=== PATIENT | male | born 1955 | race Caucasian/White ===

== ENCOUNTER → 2018-07-18 | Outpatient (CLI) | payer MEDICARE, BC ==
--- NOTE | 2018-07-18 21:01 | CONS ---
CONSULTATION DATE OF SERVICE: 07/18/2018 This patient is a 63-year-old gentleman who has been re-evaluated in Sleep Center for obstructive sleep apnea-hypopnea syndrome. Last time I saw this patient was in 2008. At that time he was diagnosed with sleep apnea and he received CPAP equipment. He used CPAP equipment successfully for many years, but about a year ago his CPAP unit was broken. At present the patient's sleep schedule is from 10 p.m. to 6 a.m. He continues to snore and has episodes of stopped breathing during sleep. He usually does have a problem with falling asleep, although he has a TV set in the bedroom. During the day he takes about 2 cups of coffee. [place] Sleepiness Scale is significantly increased at 19. PAST MEDICAL HISTORY: 1. Hypertension. 2. Diabetes mellitus. 3. BPH. 4. Polyarthritis. 5. Foot problems. PAST SURGICAL HISTORY: 1. Appendectomy. 2. Bilateral surgery for carpal tunnel syndrome. 3. Bilateral surgery for tarsal tunnel syndrome. 4. Right ankle surgery. 5. Back surgery. MEDICATIONS: 1. . 2. Glyburide. 3. Lisinopril. 4. Tamsulosin. 5. Gabapentin. 6. acid. SOCIAL HISTORY: Positive for smoking for about 46 years, now decreased down to 5 or 6 cigarettes a day. Alcohol consumption none at present. FAMILY HISTORY: Hypertension, heart problems, hypercholesterolemia, stroke, arthritis, sleep apnea, snoring, diabetes. PHYSICAL EXAMINATION: GENERAL: A pleasant gentleman without distress. VITAL SIGNS: BP 130/76, HR 76, RR 16, height 5 feet 8-1/2 inches, weight 228 pounds, body mass index 34.1, temperature 97.6, oxygen saturation at room air 95%. HEENT: PERRLA, EOMI. Evaluation of oropharynx showed tongue protrudes midline. Extremely low position of soft palate. Mallampati IV. Some restriction of nasal breathing. NECK: Supple. No JVD. Thyroid is not palpable. Wide neck; 17-1/2 inches in circumference. LUNGS: Clear to percussion and to auscultation. Good air exchange. No wheezing or rhonchi. HEART: S1, S2 regular. No murmurs, gallops or rubs. ABDOMEN: Obese. EXTREMITIES: No clubbing or cyanosis. FIBERGLASS INSULATION INSTALLER: Awake, alert, and oriented X3. Cranial nerves 2 to 7 intact. There is no fasciculation or atrophy. noted. No focal deficits observed. IMPRESSION: 1. Snoring, awakenings from sleep, extremely low position of soft palate, Mallampati IV, wide neck, significant excessive daytime sleepiness, history of obstructive sleep apnea in the past; obstructive sleep apnea-hypopnea syndrome. 2. Obesity with body mass index of 34.1. 3. Hypertension. 4. Diabetes mellitus. 5. History of benign prostatic hypertrophy. 6. History of polyarthritis. 7. History of foot problems bilaterally, status post right ankle surgery. 8. Status post appendectomy. 9. Status post carpal tunnel syndrome surgery bilaterally. 10.Status post surgery for tarsal tunnel syndrome bilaterally. 11.Status post back surgery. PLAN: 1. Polysomnography for evaluation of patient's breathing during sleep. 2. CPAP/BiPAP titration if sleep study confirms obstructive sleep apnea-hypopnea syndrome. 3. Preferable position during sleep on the side. 4. No driving if patient feels any sleepiness. 5. I will see patient for follow up visit to explain results of testing and following plan. Thank you very much for referring this patient for reevaluation. Sincerely, Pito Hall MD, PhD, FAASM Diplomat of [employer] Microbiology Teacher of [facility] [place] NICOL / ESPERANZA: [phone] /
== END ==
LOC: SLEEP 14:17
PROVIDERS: ATTEND Internal Medicine
DX: G47.33 Obstructive sleep apnea (adult) (pediatric) (principal); E66.9 Obesity, unspecified; I10 Essential (primary) hypertension; E11.9 Type 2 diabetes mellitus without complications; N40.0 Benign prostatic hyperplasia without lower urinary tract symptoms; M13.0 Polyarthritis, unspecified; F17.200 Nicotine dependence, unspecified, uncomplicated; Z98.890 Other specified postprocedural states; Z90.89 Acquired absence of other organs; Z68.34 Body mass index [BMI] 34.0-34.9, adult; Z79.899 Other long term (current) drug therapy
CPT/HCPCS: 99211

== ENCOUNTER → 2018-10-24 | Outpatient (CLI) | payer MEDICARE, BC ==
--- NOTE | 2018-10-24 12:40 | SFUN ---
SLEEP CENTER FOLLOW UP NOTE DATE OF SERVICE: 10/24/2018 This is a 63-year-old gentleman who had been followed in the sleep center for treatment of obstructive sleep apnea-hypopnea syndrome. Recently patient had polysomnogram and CPAP titration which showed the patient has severe sleep apnea. Subsequently after that, the patient was started on treatment with BiPAP and this is his first visit after he received his BiPAP unit. The patient was able to use BiPAP equipment every night without significant problems related to mask fitting, pressure or humidification. I checked his BiPAP unit. BiPAP pressure is 12/8 cm of water. Usage is every night for more than 4 hours with average usage 10 hours per night. Leak is L/minute, which is borderline. Total apnea-hypopnea index is 3.4, which is normal. [place] Sleepiness Scale today is 3, which is normal. MEDICATIONS: , , lisinopril, tamsulosin, gabapentin, acid. PHYSICAL EXAMINATION: During physical exam, patient in no distress. VITAL SIGNS: BP 116/70, HR 75, RR 16, weight 231.2, temperature 97.2, oxygen saturation at room air 95%. HEENT: PERRLA, EOMI. Oropharynx extremely low position of soft palate. Mallampati 4. NECK: Supple, no JVD. Thyroid is not palpable. LUNGS: Clear to percussion and to auscultation. Good air exchange. No wheezing or rhonchi. HEART: S1, S2 regular. No murmurs, gallops, or rubs. ABDOMEN: Obese. EXTREMITIES: No clubbing or cyanosis. REPAIR TECH: Awake, alert, and oriented X3. Cranial nerves 2 to 7 intact. There is no fasciculation or atrophy. noted. No focal deficits observed. IMPRESSION: 1. Severe obstructive sleep apnea-hypopnea syndrome. Apnea-hypopnea index 65.2 with oxygen desaturation to 82.7%, on full control with BiPAP at the pressure of 12/8 cm of water. Patient demonstrated 100% compliance with treatment benefitting from treatment. 2. Obesity. 3. Mild periodic limb movements during diagnostic night and moderate during titration. Clinically no significant presentation at the present time. 4. Hypertension. 5. Diabetes mellitus. 6. History of benign prostatic hypertrophy. 7. History of polyarthritis. 8. Status post right ankle surgery. 9. Status post appendectomy. 10.History of foot problems bilaterally. 11.Status post carpal tunnel syndrome treated surgically bilaterally. 12.Status post tarsal tunnel syndrome treated surgically bilaterally. 13.Status post back surgery. PLAN: 1. Patient will continue to use BiPAP equipment every night for the whole night. 2. Losing weight. 3. Sleep hygiene with regular time in bed for at least 8 hours. 4. No driving if feeling sleepiness. 5. Will maintain all necessary BiPAP prescription including mask, tube, filters. Thank you very much for allowing me to participate in management of your patient. Sincerely, Pito Hall MD, PhD, FAASM Diplomat of [employer] Truck Safety Inspector of [facility] [place] MMODL / MELISAN: [id number] /
== END | disposition home or self-care (01) ==
LOC: SLEEP 10:57
PROVIDERS: ATTEND Internal Medicine
DX: G47.33 Obstructive sleep apnea (adult) (pediatric) (principal); G47.61 Periodic limb movement disorder; I10 Essential (primary) hypertension; E11.9 Type 2 diabetes mellitus without complications; E66.9 Obesity, unspecified; Z87.39 Personal history of other diseases of the musculoskeletal system and connective tissue; Z87.438 Personal history of other diseases of male genital organs; Z90.89 Acquired absence of other organs; Z99.89 Dependence on other enabling machines and devices; Z98.890 Other specified postprocedural states; Z79.899 Other long term (current) drug therapy

== ENCOUNTER → 2019-10-23 | Outpatient (CLI) | payer MEDICARE, BC ==
--- NOTE | 2019-10-24 04:45 | SFUN ---
SLEEP CENTER FOLLOW UP NOTE DATE OF SERVICE: 10/23/2019 This 64-year-old gentleman has been followed in Sleep Center for treatment of obstructive sleep apnea-hypopnea syndrome. The patient successfully continuing to use his CPAP equipment every night. [place] Sleepiness Scale today is 9, which is acceptable. He is a receiving all his supplies for machine in time. I checked his CPAP unit. It is set at automatic regimen with pressure 8-12 cm of water. Average pressure 11.7 cm of water. Usage is 30 out of 30 nights for more than 4 hours with average usage 9.6 hours per night. Leak is 17 L/minute which is borderline. Apnea-hypopnea index is 1.7, which is normal. MEDICATIONS: Glyburide, lisinopril, , tamsulosin, gabapentin. PHYSICAL EXAMINATION: GENERAL: Patient in no distress. VITAL SIGNS: BP 127/71, HR 78, RR 16, height 5 feet 8 inches and 3/4, weight 235.2, temperature 97.7l oxygen saturation at room air 98%. HEENT: PERRLA, EOMI. Oropharynx in the low position of soft palate, Mallampati 4. NECK: Supple, no JVD. Thyroid is not palpable. LUNGS: Clear to percussion and to auscultation. Good air exchange. No wheezing or rhonchi. HEART: S1, S2 regular. No murmurs, gallops, or rubs. ABDOMEN: Obese. EXTREMITIES: No clubbing or cyanosis. CLINICAL PSYCHOLOGIST PRIVATE PRACTICE: Awake, alert, and oriented X3. Cranial nerves 2 to 7 intact. There is no fasciculation or atrophy. noted. No focal deficits observed. IMPRESSION: 1. Obstructive sleep apnea-hypopnea syndrome. Patient demonstrated 100% compliance with treatment benefitting from treatment. 2. Obesity. 3. Mild periodic limb movements. 4. Hypertension. 5. Diabetes mellitus. 6. History of polyarthritis. 7. History of benign prostatic hypertrophy. 8. Status post appendectomy. 9. Status post right ankle surgery. 10.History of foot problems bilaterally. 11.Status post surgical treatment for carpal tunnel syndrome bilaterally. 12.Status post surgical treatment for tarsal tunnel syndrome bilaterally. 13.Status post back surgery. PLAN: 1. Patient will continue to use PAP equipment every night for the whole night. 2. Sleep hygiene with regular time in bed for at least 7-1/2 to 8 hours. 3. Precautions related to driving. No driving if feeling sleepiness. 4. I will maintain all necessary prescription for PAP supplies including mask, tube, filters. 5. Watching weight. 6. No driving if feeling sleepiness. 7. Follow-up visit in one year or earlier if patient has any problems. Thank you very much for allowing me to participate in management of your patient. Sincerely, Pito Hall MD, PhD, FAASM Diplomat of [employer] Specialties [employer] Board of Internal Medicine Fiction Writer of [facility] [place] MMODL / IJN: [id number] /
== END | disposition home or self-care (01) ==
LOC: SLEEP 13:11
PROVIDERS: ATTEND Internal Medicine
DX: G47.33 Obstructive sleep apnea (adult) (pediatric) (principal); E66.9 Obesity, unspecified; I10 Essential (primary) hypertension; E11.9 Type 2 diabetes mellitus without complications; Z90.49 Acquired absence of other specified parts of digestive tract; Z87.39 Personal history of other diseases of the musculoskeletal system and connective tissue; Z87.448 Personal history of other diseases of urinary system; Z98.890 Other specified postprocedural states; Z99.89 Dependence on other enabling machines and devices

== ENCOUNTER → 2020-10-21 | Outpatient (CLI) | payer MEDICARE, BC ==
--- NOTE | 2020-10-21 11:53 | SFUN ---
SLEEP CENTER FOLLOW UP NOTE DATE OF SERVICE: 10/21/2020 This 65-year-old gentleman has been followed in Sleep Center for treatment of obstructive sleep apnea-hypopnea syndrome. The patient is continuing to use CPAP equipment every night for the whole night, but feels sleepy during the day. [place] Sleepiness Scale today is in very high range at 24. During his previous visit it was 9. I checked his CPAP unit. Range of the pressure is 8-12, average pressure 11.4. Usage is 30/30 nights for more than 4 hours with average usage 9.8 hours per night. Leak is borderline at 22 L/minute. Apnea-hypopnea index is only 1.8, which is totally normal. Air filter is in bad condition. Cover for the air filter is broken and needs to be replaced. MEDICATIONS: 1. Pioglitazone 30 mg once a day. 2. Glyburide 3 mg twice a day. 3. Lisinopril 20 mg twice a day. 4. Duloxetine 60 mg twice a day. 5. Tamsulosin 0.04 mg twice a day. PHYSICAL EXAMINATION: GENERAL: A pleasant patient without any distress. VITAL SIGNS: Blood pressure 108/69, heart rate 74, RR 15, height 5 feet 8-1/2 inches, weight 230 pounds, body mass index 34.4, temperature 98.5, oxygen saturation at room air 96%. HEENT: PERRLA, EOMI, evaluation of oropharynx showed tongue protrudes midline. Extremely low position of soft palate. Mallampati IV. NECK: Supple, no JVD. Thyroid is not palpable. LUNGS: Clear to percussion and to auscultation. Good air exchange. No wheezing or rhonchi. HEART: S1, S2 regular. No murmurs, gallops, or rubs. ABDOMEN: Obese. EXTREMITIES: No clubbing or cyanosis. MARKETING OPERATIONS ANALYST: Awake, alert, and oriented X3. Cranial nerves 2 to 7 intact. There is no fasciculation or atrophy. noted. No focal deficits observed. IMPRESSION: 1. Obstructive sleep apnea-hypopnea syndrome. Patient demonstrated great compliance with treatment, benefitting from treatment. 2. Sleepiness during the day; high range of [place] Sleepiness Scale. 3. Obesity. 4. History of mild periodic limb movements. 5. Hypertension. 6. Diabetes mellitus. 7. History of polyarthritis. 8. History of benign prostatic hypertrophy. 9. Status post appendectomy. 10.Status post right ankle surgery. 11.History of foot problems bilaterally. 12.Status post surgical treatment for carpal tunnel syndrome bilaterally. 13.Status post surgical treatment for tarsal tunnel syndrome bilaterally. 14.Status post back surgery. PLAN: 1. Immediately to replace air filter. Condition of air filter is bad. Cover for air filter is broken and also needs to be replaced. 2. I discussed with the patient a multiple sleep latency test for objective evaluation of symptoms of his sleepiness and, if necessary, pharmacotherapy. The patient did not want to proceed at the present time. 3. Patient will continue to use PAP equipment every night for the whole night. 4. Sleep hygiene with regular time in bed for at least 7-1/2 to 8 hours. 5. Precautions related to driving. No driving if feeling sleepiness. 6. I will maintain all necessary prescription for PAP supplies including mask, tube, filters. 7. Watching weight. 8. Follow-up visit in 6 months or earlier if patient has any problems. Thank you very much for allowing me to participate in the management of your patient. Sincerely, Pito Hall MD, PhD, FAASM Diplomat of [place] [employer] Special[employer] Sleep Medicine Board of [place] [employer] of Internal Medicine Stock[employer] Box Shop Supervisor of [facility] [place] MMODL / MELISAN: [phone] /
== END | disposition home or self-care (01) ==
LOC: SLEEP 09:52
PROVIDERS: ATTEND Internal Medicine
DX: G47.33 Obstructive sleep apnea (adult) (pediatric) (principal); E66.9 Obesity, unspecified; I10 Essential (primary) hypertension; E11.9 Type 2 diabetes mellitus without complications; M13.0 Polyarthritis, unspecified; N40.1 Benign prostatic hyperplasia with lower urinary tract symptoms; Z90.89 Acquired absence of other organs; Z98.1 Arthrodesis status

== ENCOUNTER → 2021-10-19 | Outpatient (CLI) | payer MEDICARE, BC ==
--- NOTE | 2021-10-19 11:03 | P.PN ---
Subjective DATE: 10/19/2021 FOLLOW UP VISIT. Patient with obstructive sleep apnea hypopnea syndrome return to sleep center for follow-up visit. Information from previous visit have been reviewed. Patient is using PAP equipment every night for the whole night, getting PAP supplies in time. The patient feels that humidity is too high in his CPAP unit, he does not know how to change level of humidity. Patient continued to have significant excessive daytime sleepiness. [place] sleepiness scale is an maximal level of 24. I checked information from PAP unit. PAP unit pressure 8-12, average 11.7 cm H2O. Usage is 100 % for more then 4 hours, average 9.6 hours per night. Leak is 13 l/m, which is in acceptable range. Apnea Hypopnea Index is 2, which is normal. MEDICATIONS:1. Lisinopril 20 mg twice a day 2. , Gliburide 3 mg twice a day 3. Tamsulosin 0.04 mg twice a day 4. Gabapentin 300 mg twice a day 5. Pioglitazone 30 mg once a day 6. Foltanx twice a day During physical exam: GENERAL: A pleasant patient without any distress. VITAL SIGNS: BP 108/67, HR 64, RR 18 , weight 244.4, temperature 97, oxygen saturation at room air 96 % . HEENT: PERRLA, EOMI.low position of soft palate, Mallapati 4 . NECK: Supple. No JVD. LUNGS: Clear to percussion and to auscultation. Good air exchange. No wheezing or rhonchi. HEART: S1, S2 regular. ABDOMEN: Soft and nontender. Obese EXTREMITIES: No clubbing or cyanosis. YARD COORDINATOR: Awake, alert, and oriented x3. No focal deficit. Impressions: 1. Obstructive sleep apnea-hypopnea syndrome. Patient demonstrated great compliance with treatment, benefiting from treatment. Normal respiration on CPAP. 2. Patient continued to complain on symptoms of excessive daytime sleepiness. [place] Sleepiness Scale at maximal level of 24. Patient is able to fall asleep in waiting area while waiting for appointment. Differential diagnosis would include additional diagnosis of hypersomnia. 3. Hypertension. 4. Diabetes mellitus. 5. History of polyarteritis. 6. History of benign prostatic hypertrophy. 7. Status post appendectomy. 8. Status post right ankle surgery. 9. History of 4 problems, waiting for food surgery. Plan: 1. Continue using PAP equipment every night for the whole night. I teach patient how to adjust humidifier. Level of humidity was adjusted lower to the level of 2. 2. Multiple sleep latency test for objective for evaluation patient's symptoms of excessive daytime sleepiness. Tests will be done after the night on CPAP. 3. PAP unit should stay lower then position of the head. 4. Advised patient to remove all remaining water from humidifier canister daily and make it dry after each usage. Refill canister with fresh distilled water before each usage. 5. Sleep hygiene with regular time in bed for at least 8 hours. 6. Precautions related to driving. No driving if feel any sleepiness. 7. I will maintain prescription for PAP supplies including mask, tube, filters. 8. Follow up visit after M SLT test to discuss results and following plan. 9. Watching and losing weight. Thank you very much for allowing me to participate in the management of your patient. Pito Hall MD, PhD, FAASM. Diplomat of [place] Board [employer] Sleep Medicine, Sleep Medicine Board by [place] Board of Internal Medicine Manager Package of [facility] [place]
== END | disposition home or self-care (01) ==
LOC: SLEEP 09:53
PROVIDERS: ATTEND Internal Medicine
DX: G47.33 Obstructive sleep apnea (adult) (pediatric) (principal); I10 Essential (primary) hypertension; E11.9 Type 2 diabetes mellitus without complications; N40.0 Benign prostatic hyperplasia without lower urinary tract symptoms
CPT/HCPCS: 99212

== ENCOUNTER 2021-12-27 06:42 | Day surgery (SDC) | payer MEDICARE, BC ==
[~2021-12-27 06:42] MED LIST: LACTATED RINGERS 1,000 ML IV SCH; LIDOCAINE 1% (10MG/ML) FOR IV START INTRADERMA PRN
[2021-12-27 07:27] LABS: Glucose,Whole Blood 108 mg/dL (70-110)
[2021-12-27] MEDS ORDERED: PROPOFOL 10 MG/ML 20 ML VIAL IV ONE (07:56)
[2021-12-27] MEDS ORDERED: LIDOCAINE 2% INJ 20 MG/ML (2 ML VIAL) ONE (07:56)
--- NOTE | 2021-12-27 08:29 | P.PCN ---
Date of Procedure: 12/27/21 Procedure(s) Performed: BRIEF HISTORY: Patient is a 66-year-old, pleasant, white male scheduled for an upper endoscopy as a part of evaluation of progressive dysphagia to solids for the last several months duration.. He has these episodes almost to 3 times a day. Has occasional dysphagia to liquids. No recent weight loss. He scheduled for an upper endoscopy with possible dilation PROCEDURE PERFORMED: Esophagogastroduodenoscopy with biopsy. PREOPERATIVE DIAGNOSIS: Progressive dysphagia to solids of several months duration. IV sedation per anesthesia. PROCEDURE: After informed consent was obtained, the patient was brought into the endoscopy unit. IV sedation was administered by Anesthesia under continuous monitoring. Initially the Olympus GIF-140 video endoscope was inserted into the mouth. Esophagus intubated without any difficulty. It was gradually advanced into the stomach and duodenum and carefully examined. The bulb and the second part of the duodenum appeared normal. The scope at this time was withdrawn to the stomach, adequately insufflated with air, and upon careful examination, mucosa of the antrum, gastritis and biopsies were done from this area. The body, cardia and the fundus appeared normal. The scope was then withdrawn into the esophagus. The GE junction was located at 43 cm from the incisors. The GE junction appeared somewhat tight but there was no obvious esophageal stricture identified. The mucosa of the esophagus appeared normal. However there was evidence of esophageal dysmotility involving the entire esophagus. Biopsies were done from the mid and distal esophagus and the patient tolerated the procedure well. IMPRESSION: 1. Evidence of esophageal dysmotility and tight lower esophageal sphincter suspicious for esophageal achalasia. 2. No evidence of esophageal stricture 3. Mild antral gastritis. RECOMMENDATIONS: The findings of this examination were discussed with the patient as well as his family. He was advised to follow with the biopsy results. He will be scheduled for esophageal manometry and he'll be seen in office in 2-3 weeks.
[2021-12-27 08:49] VITALS: BP 137/73; PULSE 69; RESP 18
== END 2021-12-27 09:25 | disposition home or self-care (01) ==
LOC: ORWHC2ENDO 06:42
PROVIDERS: ATTEND Internal Medicine Gastroenterology
DX: K29.50 Unspecified chronic gastritis without bleeding (principal); K20.90 Esophagitis, unspecified without bleeding; I10 Essential (primary) hypertension; G47.33 Obstructive sleep apnea (adult) (pediatric); E11.40 Type 2 diabetes mellitus with diabetic neuropathy, unspecified; F17.200 Nicotine dependence, unspecified, uncomplicated; Z79.84 Long term (current) use of oral hypoglycemic drugs; Z79.899 Other long term (current) drug therapy; Z99.89 Dependence on other enabling machines and devices
CPT/HCPCS: 88305; 43239; J2704; J2001

== ENCOUNTER → 2022-01-04 | Outpatient (CLI) | payer MEDICARE, BC ==
--- NOTE | 2022-01-04 11:18 | P.PN ---
Subjective DATE: 01/04/2022 FOLLOW UP VISIT. Patient with obstructive sleep apnea hypopnea syndrome return to sleep center for follow-up visit. Information from previous visit have been reviewed. I recently patient had the multiple sleep latency test and I discussed results of sleep study with patient in details. Mean sleep latency during the multiple sleep latency test was 7.8 minutes. Total sleep onset REM periods, which following standard criteria's may indicate possibility of narcolepsy. At the same time extremely severe periodic limb movements during M SLT and polysomnogram which also could be the reason for sleepiness. Patient is using PAP equipment every night for the whole night, getting PAP supplies in time. The patient does not have significant problems with the mask, PAP unit and humidification. [place] sleepiness scale is in extremely high range of 24. I checked information from PAP unit. PAP unit pressure 8-12, average 11.8 cm H2O. Usage is 97 % for more then 4 hours, average 8.8 hours per night. Leak is 20.6 l/m, which is in acceptable range. Apnea Hypopnea Index is 1.1, which is normal. MEDICATIONS:1. Lisinopril 20 mg twice a day 2. Tumsulosin 3. Gabapentin 300 mg 3 times a day 4. Gliburide 3 mg twice a day 5. Pioglitazone 30 mg once a day During physical exam: GENERAL: A pleasant patient without any distress. VITAL SIGNS: BP 150/79, HR 77, RR 13, weight 239.6, temperature 97.6, oxygen saturation at room air 19 2 % . HEENT: PERRLA, EOMI.low position of soft palate, Mallapati 4 . NECK: Supple. No JVD. LUNGS: Clear to percussion and to auscultation. Good air exchange. No wheezing or rhonchi. HEART: S1, S2 regular. ABDOMEN: Soft and nontender. Obese EXTREMITIES: No clubbing or cyanosis. WELDER REPAIR: Awake, alert, and oriented x3. No focal deficit. Impressions: 1. Obstructive sleep apnea-hypopnea syndrome. Patient demonstrated great compliance with treatment, benefiting from treatment. 2. Multiple sleep latency test showed mean sleep latency 7.8 minutes with total sleep onset REM periods which indicate possible narcolepsy. 3. Patient has pain in the right ankle, preparing for right ankle surgery. 4. Extremely severe periodic limb movements during polysomnogram 80.9 times per hour, but only was 0.3 micro-arousals per hour. Leg movements also could be the reason for significant excessive daytime sleepiness. Possibly leg movements related to the pain in the ankles.. 5. Obesity. 6. Hypertension. 7. Diabetes mellitus. 8. History of BPH. 9. Status post appendectomy. 10. Status post right ankle surgery. Plan: 1. Continue using PAP equipment every night for the whole night. 2. I discussed with patient possibility to start him on treatment with the medications preventing daytime sleepiness, but patient prefers not to do it at the present time. 3. I discussed with patient possibility to start him off on medications for periodic limb movements, but she also doesn't want to do it at the present time, prefers to wait after surgery will be done on his left ankle. My consideration is dopaminergic agonists, because patient is already on treatment with gabapentin. 4. Iron profile including ferritin level should be checked, because low level of iron may increase risk for periodic limb movements. 5. Sleep hygiene with regular time in bed for at least 8 hours. 6. Precautions related to driving. No driving if feel any sleepiness. 7. I will maintain prescription for PAP supplies including mask, tube, filters. 8. Follow up visit in 6 months or earlier if patient has any problems. 9. Watching and losing weight. Thank you very much for allowing me to participate in the management of your patient. Pito Hall MD, PhD, FAASM. Diplomat of [place] [employer] of Sleep Medicine, Sleep Medicine Board by [place] [employer] of [employer] Medicine Cupola Man of [facility] [place]
== END ==
LOC: SLEEP 10:30
PROVIDERS: ATTEND Internal Medicine
DX: G47.33 Obstructive sleep apnea (adult) (pediatric) (principal); E66.9 Obesity, unspecified; I10 Essential (primary) hypertension; E11.9 Type 2 diabetes mellitus without complications; M25.571 Pain in right ankle and joints of right foot; Z48.815 Encounter for surgical aftercare following surgery on the digestive system; Z96.661 Presence of right artificial ankle joint; N40.0 Benign prostatic hyperplasia without lower urinary tract symptoms; G47.61 Periodic limb movement disorder; Z99.89 Dependence on other enabling machines and devices
CPT/HCPCS: 99212

== ENCOUNTER → 2022-08-21 | Day surgery (SDC) | payer MEDICARE, BC ==
[2022-08-17 17:26] VITALS: BMI 36.9
[2022-08-21 09:34] VITALS: BP 125/67; PULSE 63; RESP 16; TEMP 97.9
== END ==
LOC: ORWHC2ENDO 09:15
PROVIDERS: ATTEND Internal Medicine Gastroenterology
DX: R13.19 Other dysphagia (principal)
CPT/HCPCS: 91010

== ENCOUNTER → 2022-10-11 | Outpatient (CLI) | payer MEDICARE, BC ==
--- NOTE | 2022-10-11 11:31 | P.PN ---
Subjective DATE: 10/10/2022 FOLLOW UP VISIT. Patient with obstructive sleep apnea hypopnea syndrome return to sleep center for follow-up visit. Information from previous visit have been reviewed. Patient is using PAP equipment every night for the whole night, getting PAP supplies in time. Patient feels more comfortable with the mask, but the still may have some discomfort and difficulties to breathe through the nose in the morning. In the morning patient may experience headache.[place] sleepiness scale is 8, which is normal. I checked information from PAP unit. PAP unit pressure 8-12, average 11.7 cm H2O. Usage is 100 % for more then 4 hours, average 9 hours per night. Leak is 9.5 l/m, which is in acceptable range. Apnea Hypopnea Index is 2.1, which is normal. MEDICATIONS:1. Lisinopril 20 mg once a day 2. Gabapentin 600 mg up to 3 times a day 3. Glyburide 3 mg twice a day 4. pioglitazone 30 mg once a day During physical exam: GENERAL: A pleasant patient without any distress. VITAL SIGNS: BP 124/75, HR 76, RR 18 , weight 259.0, temperature 98.1, oxygen saturation at room air 94 % . HEENT: PERRLA, EOMI.low position of soft palate, Mallapati 4 . NECK: Supple. No JVD. LUNGS: Clear to percussion and to auscultation. Good air exchange. No wheezing or rhonchi. HEART: S1, S2 regular. ABDOMEN: Soft and nontender. Slightly obese EXTREMITIES: No clubbing or cyanosis. CERTIFIED FINANCIAL PLANNER: Awake, alert, and oriented x3. No focal deficit. I changed the pressure in CPAP unit to the range 8-10 cm of water with the goal to prevent discomfort in the morning in the nose. We again discussed adjustments of humidity and tube temperature. Impressions: 1. Obstructive sleep apnea-hypopnea syndrome. Patient demonstrated great compliance with treatment, benefiting from treatment. 2. Obesity, patient increased his weight on 20 pounds comparing to the previous visit. 3. Results of multiple sleep latency test 7.8 minutes, I discussed options for using daytime medications to prevent sleepiness during previous visit, but patie nt prefers not to do it. 4. Periodic limb movements 80.9 times per hour by results of the sleep study. 5. Hypertension. 6. Diabetes mellitus. 7. History of BPH. 8. Status post appendectomy. 9. Status post right ankle surgery. Plan: 1. Continue using PAP equipment every night for the whole night. 2. To change air filter at least 1-2 times per month. 3. PAP unit should stay lower then position of the head. 4. Advised patient to remove all remaining water from humidifier canister daily and make it dry after each usage. Refill canister with fresh distilled water before each usage. 5. Sleep hygiene with regular time in bed for at least 8 hours. 6. Precautions related to driving. No driving if feel any sleepiness. 7. I will maintain prescription for PAP supplies including mask, tube, filters. 8. Watching and losing weight. 9. Follow up visit in 6 months or earlier if patient has any problems. Thank you very much for allowing me to participate in the management of your patient. Pito Hall MD, PhD, FAASM. Diplomat of [employer], Sleep Medicine Board by [employer] Organic Extractions Technician of [facility] [place]
== END ==
LOC: 3 N SLEEP 10:26
PROVIDERS: ATTEND Internal Medicine
DX: G47.33 Obstructive sleep apnea (adult) (pediatric) (principal); E66.9 Obesity, unspecified; I10 Essential (primary) hypertension; E11.9 Type 2 diabetes mellitus without complications; N40.0 Benign prostatic hyperplasia without lower urinary tract symptoms; G47.61 Periodic limb movement disorder; Z98.890 Other specified postprocedural states; Z99.89 Dependence on other enabling machines and devices; Z79.899 Other long term (current) drug therapy; Z90.49 Acquired absence of other specified parts of digestive tract; Z79.84 Long term (current) use of oral hypoglycemic drugs
CPT/HCPCS: 99212

== ENCOUNTER → 2023-04-09 | Outpatient (CLI) | payer MEDICARE, BC ==
--- NOTE | 2023-04-09 12:21 | P.PN ---
Subjective DATE: 04/09/2023 FOLLOW UP VISIT. Patient with obstructive sleep apnea hypopnea syndrome return to sleep center for follow-up visit. Information from previous visit have been reviewed. Patient is using PAP equipment every night for the whole night, getting PAP supplies in time. The patient does not have significant problems with the mask, PAP unit and humidification. [place] sleepiness scale is 3, which is normal. I checked information from PAP unit. PAP unit pressure 8-10, average 10 cm H2O. Usage is 100 % for more then 4 hours, average 9 hours per night. Leak is 5 l/m, which is in acceptable range. Apnea Hypopnea Index is 3.0, which is normal. MEDICATIONS:1. Lisinopril 20 mg 1 twice a day 2. Gabapentin 300 mg 3 times a day 3. Pioglitazone 30 mg once a day 4. Glyburide 3 mg twice a day 5., Tomsulosin 0.4 mg twice a day During physical exam: GENERAL: A pleasant patient without any distress. VITAL SIGNS: BP 124/84, HR 86, RR 16, weight 258, temperature 97.5, oxygen saturation at room air 95 % . HEENT: PERRLA, EOMI.low position of soft palate, Mallapati 4 . NECK: Supple. No JVD. LUNGS: Clear to percussion and to auscultation. Good air exchange. No wheezing or rhonchi. HEART: S1, S2 regular. ABDOMEN: Soft and nontender. Slightly obese EXTREMITIES: No clubbing or cyanosis. INDEPENDENT INSURANCE ADJUSTER: Awake, alert, and oriented x3. No focal deficit. Impressions: 1. Obstructive sleep apnea-hypopnea syndrome. Patient demonstrated great compliance with treatment, benefiting from treatment. 2. Diabetes mellitus, recent hemoglobin A1c according to patient 6.5. 3. Restless leg symptoms. 4. Periodically movements. 5. Hypertension. 6.. Peripheral neuropathy. 7. BPH. 8. Multiple sleep latency test confirmed sleepiness with mean sleep latency 7.8 minutes in the past. Patient prefers no additional medications during the day for sleepiness. Plan: 1. Continue using PAP equipment every night for the whole night. 2. To change air filter at least 1-2 times per month. 3. PAP unit should stay lower then position of the head. 4. Advised patient to remove all remaining water from humidifier canister daily and make it dry after each usage. Refill canister with fresh distilled water before each usage. 5. Sleep hygiene with regular time in bed for at least 8 hours. 6. Precautions related to driving. No driving if feel any sleepiness. 7. I will maintain prescription for PAP supplies including mask, tube, filters. 8. Follow up visit in 6 months or earlier if patient has any problems. 9. Watching weight. 10. Please check iron profile with ferritin level. Low level of iron may increase the risk for restless legs and periodic limb movements. 11. Patient will start to take Mirapex 0.125 mg 1-2 tablets at bedtime. Thank you very much for allowing me to participate in the management of your patient. Pito Hall MD, PhD, FAASM. Diplomat of [place] [employer], Sleep Medicine Board by [place] [employer] Pediatric Orthodontist of [facility] [place]
== END ==
LOC: 3 N SLEEP 11:13
PROVIDERS: ATTEND Internal Medicine
DX: G47.33 Obstructive sleep apnea (adult) (pediatric) (principal); E11.42 Type 2 diabetes mellitus with diabetic polyneuropathy; G25.81 Restless legs syndrome; G47.61 Periodic limb movement disorder; I10 Essential (primary) hypertension; N40.0 Benign prostatic hyperplasia without lower urinary tract symptoms; Z99.89 Dependence on other enabling machines and devices; Z79.899 Other long term (current) drug therapy; Z79.84 Long term (current) use of oral hypoglycemic drugs
CPT/HCPCS: 99212

== ENCOUNTER → 2023-10-31 | Outpatient (CLI) | payer MEDICARE, BC ==
[2023-10-31 11:59] VITALS: BP 99/63; PULSE 104; RESP 16; TEMP 97.5
--- NOTE | 2023-10-31 12:22 | P.PROGSL ---
Subjective DATE: 10/31/2023 FOLLOW UP VISIT. Patient with obstructive sleep apnea hypopnea syndrome return to sleep center for follow-up visit. Information from previous visit have been reviewed. Patient is using PAP equipment every night for the whole night, getting PAP supplies in time. The patient does not have significant problems with the mask, PAP unit and humidification. [place] sleepiness scale is 6, which is normal. I checked information from PAP unit. PAP unit pressure 8-10 cm H2O. Usage is 100% for more then 4 hours, average 10 hours per night. Leak is 16 l/m, which is in acceptable range. Apnea Hypopnea Index is 1.6, which is normal. MEDICATIONS have been reviewed, please see below. During physical exam: GENERAL: A pleasant patient without any distress. VITAL SIGNS: Please see below, weight is 235 lbs. HEENT: PERRLA, EOMI.low position of soft palate, Mallapati 4. NECK: Supple. No JVD. LUNGS: Clear to percussion and to auscultation. Good air exchange. No wheezing or rhonchi. HEART: S1, S2 regular. ABDOMEN: Soft and nontender. Slightly obese EXTREMITIES: No clubbing or cyanosis. SECURITY SYSTEMS ENGINEER: Awake, alert, and oriented x3. No focal deficit. Impressions: 1. Obstructive sleep apnea-hypopnea syndrome. Patient demonstrated great compliance with treatment, benefiting from treatment. 2. Sleepiness, confirmed by multiple sleep latency test with mean sleep latency 7.8 minutes in the past. Patient prefers no additional medication during the day for sleepiness. 3. Diabetes mellitus. 4. Periodic limb movements. 5. Restless leg syndrome. 6. Hypertension. 7. Peripheral neuropathy. 8. BPH. 9. Mild obesity, BMI 35.7, patient lost 23 pounds comparing with previous visit. Plan: 1. Continue using PAP equipment every night for the whole night. 2. Sleep hygiene with regular time in bed for at least 7.5-8 hours 3. PAP unit should stay lower then position of the head. 4. Advised patient to remove all remaining water from humidifier canister daily and make it dry after each usage. Refill canister with fresh distilled water before each usage. 5. Watching weight. 6. Precautions related to driving. No driving if feel any sleepiness. 7. I will maintain prescription for PAP supplies including mask, tube, filters. 8. Follow up visit in 6 months or earlier if patient has any problems. Thank you very much for allowing me to participate in the management of your patient. Pito Hall MD, PhD, FAASM. Diplomat of [place] [employer], Sleep Medicine Board by [place] [employer] Dandy Operator of [facility] [place] Objective - Vital Signs Vital Signs: Vital Signs Temp 97.5 F L 10/31/23 11:58 Pulse 104 H 10/31/23 11:58 Resp 16 10/31/23 11:58 BP 99/63 10/31/23 11:58 Pulse Ox 94 L 10/31/23 11:58 FiO2 Intake & Output 10/30/23 10/31/23 10/31/23 18:59 06:59 18:59 Weight 106.594 kg Home Medications: Home Medications Medication Instructions Recorded Confirmed Type Gabapentin [Neurontin] 600 mg PO TID 12/22/21 05/02/23 History Pioglitazone [Actos] 30 mg PO DAILY 12/22/21 05/02/23 History Tamsulosin HCl [Flomax] 0.4 mg PO BID 12/22/21 10/31/23 History glyBURIDE [Diabeta] 3 mg PO AC-BID 12/22/21 05/02/23 History lisinopriL [Zestril] 20 mg PO BID 12/22/21 10/31/23 History Cholecalciferol [Vitamin D3 (25 125 mcg PO DAILY 08/17/22 10/31/23 History Mcg = 1000 Iu)] Pramipexole [Mirapex] 0.25 mg PO DAILY 04/30/23 05/02/23 History DULoxetine HCL [Cymbalta] 30 mg PO DAILY 10/31/23 10/31/23 History
== END ==
LOC: 3 N SLEEP 11:38
PROVIDERS: ATTEND Internal Medicine
CPT/HCPCS: 99212

== ENCOUNTER → 2024-06-04 | Outpatient (CLI) | payer MEDICARE, BC ==
[2024-06-04 11:12] VITALS: BP 117/73; PULSE 82; RESP 16; TEMP 98.1
--- NOTE | 2024-06-04 11:26 | P.PROGSL ---
Subjective DATE: 06/04/2024 FOLLOW UP VISIT. Patient with obstructive sleep apnea hypopnea syndrome return to sleep center for follow-up visit. Information from previous visit have been reviewed. Patient is using PAP equipment every night for the whole night, getting PAP supplies in time. The patient does not have significant problems with the mask, PAP unit and humidification. [place] sleepiness scale is 3, which is normal. I checked information from PAP unit. PAP unit pressure 8-10, average 10 cm H2O. Usage is 100% for more then 4 hours, average 7.4 hours per night. Leak is 16 l/m, which is in acceptable range. Apnea Hypopnea Index is 1.8, which is normal. MEDICATIONS have been reviewed, please see below. During physical exam: GENERAL: A pleasant patient without any distress. VITAL SIGNS: Please see below, weight is 220 lbs. HEENT: PERRLA, EOMI.low position of soft palate, Mallapati 4 . NECK: Supple. No JVD. LUNGS: Clear to percussion and to auscultation. Good air exchange. No wheezing or rhonchi. HEART: S1, S2 regular. ABDOMEN: Soft and nontender.[] EXTREMITIES: No clubbing or cyanosis. WARP CHANGER: Awake, alert, and oriented x3. No focal deficit. Impressions: 1. Obstructive sleep apnea-hypopnea syndrome. Patient demonstrated great compliance with treatment, benefiting from treatment. 2. Mild obesity, BMI 33.2, patient lost 15 pounds since previous visit. 3. Sleepiness confirmed by multiple sleep latency test with mean sleep latency 7.8 minutes, patient prefers not to use any additional medication to improve his alertness. [place] Sleepiness Scale today is normal. 4. History of restless legs. 5. History of periodic limb movements, no complaints. 6. Hypertension. 7. History of peripheral neuropathy. 8. BPH. Plan: 1. Continue using PAP equipment every night for the whole night. 2. Sleep hygiene with regular time in bed for at least 7.5-8 hours 3. PAP unit should stay lower then position of the head. 4. Advised patient to remove all remaining water from humidifier canister daily and make it dry after each usage. Refill canister with fresh distilled water before each usage. 5. Watching weight. 6. Precautions related to driving. No driving if feel any sleepiness. 7. I will maintain prescription for PAP supplies including mask, tube, filters. 8. Follow up visit in 8 months or earlier if patient has any problems. Thank you very much for allowing me to participate in the management of your patient. Pito Hall MD, PhD, FAASM. Diplomat of [place] [employer], Sleep Medicine Board by [place] [employer] Dobie Man of [facility] [place] Objective - Vital Signs Vital Signs: Vital Signs Temp 98.1 F 06/04/24 11:12 Pulse 82 06/04/24 11:12 Resp 16 06/04/24 11:12 BP 117/73 06/04/24 11:12 Pulse Ox 99 06/04/24 11:12 FiO2 Intake & Output 06/03/24 06/04/24 06/04/24 18:59 06:59 18:59 Weight 99.79 kg Home Medications: Home Medications Medication Instructions Recorded Confirmed Type Gabapentin [Neurontin] 600 mg PO TID 12/22/21 06/04/24 History Pioglitazone [Actos] 30 mg PO DAILY 12/22/21 05/02/23 History Tamsulosin HCl [Flomax] 0.4 mg PO BID 12/22/21 06/04/24 History glyBURIDE [Diabeta] 3 mg PO AC-BID 12/22/21 05/02/23 History lisinopriL [Zestril] 20 mg PO BID 12/22/21 06/04/24 History Cholecalciferol [Vitamin D3 (25 125 mcg PO DAILY 08/17/22 06/04/24 History Mcg = 1000 Iu)] Pramipexole [Mirapex] 0.25 mg PO DAILY 04/30/23 05/02/23 History DULoxetine HCL [Cymbalta] 30 mg PO DAILY 10/31/23 10/31/23 History Simvastatin 40 mg PO DIRECTED 06/04/24 06/04/24 History Tirzepatide [Mounjaro] 15 mg SQ WEEKLY 06/04/24 06/04/24 History
== END ==
LOC: 3 N SLEEP 10:56
PROVIDERS: ATTEND Internal Medicine
DX: G47.33 Obstructive sleep apnea (adult) (pediatric) (principal); G25.81 Restless legs syndrome; G47.61 Periodic limb movement disorder; I10 Essential (primary) hypertension; N40.0 Benign prostatic hyperplasia without lower urinary tract symptoms; Z68.33 Body mass index [BMI] 33.0-33.9, adult; Z86.69 Personal history of other diseases of the nervous system and sense organs
CPT/HCPCS: 99212